=== PATIENT | male | born 1985 | race Caucasian/White ===

== ENCOUNTER 2018-01-10 14:35 | Emergency (ER) | payer OTHER ==
[2018-01-10 14:45] VITALS: BP 145/80
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
== END 2018-01-10 16:03 | disposition home or self-care (01) ==
LOC: ER 14:35
DX: S16.1XXA Strain of muscle, fascia and tendon at neck level, initial encounter (principal); M54.2 Cervicalgia; V43.52XA Car driver injured in collision with other type car in traffic accident, initial encounter
CPT/HCPCS: 72125; 99284

== ENCOUNTER 2020-06-19 09:31 | Emergency (ER) | payer OTHER ==
[2020-06-19 09:39] VITALS: BP 146/83
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
== END 2020-06-19 12:45 | disposition home or self-care (01) ==
LOC: ER 09:31
DX: S90.31XA Contusion of right foot, initial encounter (principal); M79.671 Pain in right foot; M79.89 Other specified soft tissue disorders; W51.XXXA Accidental striking against or bumped into by another person, initial encounter; F17.210 Nicotine dependence, cigarettes, uncomplicated
CPT/HCPCS: 99283